=== PATIENT | female | born 1990 | race African-American/Black ===

== ENCOUNTER 2022-01-07 18:06 | Emergency (ER) | payer OTHER ==
[2022-01-07] MEDS ORDERED: FAMOTIDINE 20 MG/50 ML IVPB 20 MG/50 ML MG IVPB ONE ×2 (18:23→18:51)
[2022-01-07] MEDS ORDERED: SODIUM CHLORIDE 0.9% 1000 ML INFUS.BAG IV ONE (18:23)
[2022-01-07] MEDS ORDERED: ONDANSETRON 4 MG/2 ML VIAL IVPUSH ONE (18:23)
[2022-01-07 18:25] VITALS: BP 135/79; PULSE 84; TEMP 98.6; BMI 26.3
[2022-01-07] MEDS ORDERED: ONDANSETRON 4 MG/2 ML VIAL ONE (18:51)
[2022-01-07 19:13] LABS: ALBUMIN 4.2 g/dl (3.4-5.0); BILIRUBIN,TOTAL 0.7 mg/dl (0.2-1); CALCIUM 9.3 mg/dl (8.5-10); CREATININE 0.8 mg/dl (0.55-1.3); TOT PROT 8.1 g/dl (6.4-8.2)
[2022-01-07 20:10] LABS: BASO % 0.3 % (0-2.0); EOS % 1.2 % (0-4.5); HEMATOCRIT 39.4 % (32.4-45.2); HEMOGLOBIN 13.5 GM/dL (10.7-15.3); LYMPH % 7.6 % (8-40); MCH 28.9 pg (25.7-33.7); MCHC 34.4 g/dl (32.0-36.0); MEAN CELL VOLUME 83.9 fl (80-96); MEAN PLT VOLUME 9.1 fl (7.5-11.1); MONO % 4.1 % (3.8-10.2); NEUT % 86.8 % (42.8-82.8); PLATELET COUNT 334 10^3/uL (134-434); RBC 4.69 M/mm3 (3.60-5.2); RDW 13.1 % (11.6-15.6); WHITE BLOOD COUNT 11.2 K/mm3 (4.0-10.0)
== END 2022-01-07 21:38 | disposition home or self-care (01) ==
LOC: FER 18:06
PROC: 3E033NZ Introduction of Analgesics, Hypnotics, Sedatives into Peripheral Vein, Percutaneous Approach (ICD-10-PCS; principal; 2022-01-07)
PROC: 3E033GC Introduction of Other Therapeutic Substance into Peripheral Vein, Percutaneous Approach (ICD-10-PCS; 2022-01-07)
DX: R11.2 Nausea with vomiting, unspecified (principal)
CPT/HCPCS: 36415; 80053; 83690; 84484; 85025; 93005; 96365; 96375; 99284-25; C9803; U0003; U0005

== ENCOUNTER 2022-08-20 06:41 | Emergency (ER) | payer OTHER ==
[2022-08-20 06:49] VITALS: BP 128/86; PULSE 83; RESP 18; TEMP 97.4; BMI 25.8
[2022-08-20] MEDS ORDERED: FAMOTIDINE 20 MG/50 ML IVPB 20 MG/50 ML MG IVPB ONE ×2 (07:45→08:02)
[2022-08-20] MEDS ORDERED: SODIUM CHLORIDE 1,000 ML IV STA (07:45)
[2022-08-20] MEDS ORDERED: ONDANSETRON 4 MG/2 ML VIAL IVPUSH ONE (07:45)
[2022-08-20] MEDS ORDERED: ACETAMINOPHEN 1000 MG/100 ML BAG IVPB ONE (07:45)
[2022-08-20] MEDS ORDERED: ONDANSETRON 4 MG/2 ML VIAL ONE (08:02)
[2022-08-20] MEDS ORDERED: ACETAMINOPHEN INJECTION 100 ML IVPB ONE (08:02)
[2022-08-20 08:59] LABS: HEMATOCRIT 42.1 % (32.4-45.2); MCH 29.5 pg (25.7-33.7); MCHC 35.6 g/dl (32.0-36.0); MEAN CELL VOLUME 82.8 fl (80-96); MEAN PLT VOLUME 8.4 fl (7.5-11.1); PLATELET COUNT 345 10^3/uL (134-434); RBC 5.08 M/mm3 (3.60-5.2); RDW 13.5 % (11.6-15.6); WHITE BLOOD COUNT 6.2 K/mm3 (4.0-10.0)
[2022-08-20 09:30] LABS: CALCIUM 9.6 mg/dL (8.5-10.1)
[2022-08-20 09:31] LABS: ALBUMIN 4.2 g/dl (3.4-5.0); BLOOD UREA NITROGEN 11.9 mg/dL (7-18)
[2022-08-20 09:35] LABS: BILIRUBIN,TOTAL 0.2 mg/dL (0.2-1); CREATININE 1.2 mg/dL (0.55-1.3); TOT PROT 8.4 g/dl (6.4-8.2)
[2022-08-20 09:55] LABS: ANISOCYTOSIS 0; HELMET CELLS 0; HOWELL-JOLLY BODIES 0; MACROCYTOSIS 0; OVALOCYTE 0; ROULEAU 0; SICKELED CELLS 0; TARGET CELLS 0; TEAR DROP CELLS 0; TOXIC GRANULATION 0
== END 2022-08-20 12:02 | disposition home or self-care (01) ==
LOC: JERFT 06:41 → JER 06:41 → JERFT 12:02
PROC: 3E033GC Introduction of Other Therapeutic Substance into Peripheral Vein, Percutaneous Approach (ICD-10-PCS; principal; 2022-08-20)
DX: R19.7 Diarrhea, unspecified (principal)
CPT/HCPCS: 0241U-QW; 36415; 80053; 82272; 84703; 85025; 87045; 87046; 87186; 87209; 87324; 87449; 99284-25

== ENCOUNTER 2023-03-22 11:47 | Emergency (ER) | payer BC, OTHER ==
[2023-03-22 11:52] VITALS: BP 118/75; PULSE 68; RESP 18; TEMP 97.5; BMI 27.3
[2023-03-22] MEDS ORDERED: DEXAMETHASONE SOD PHOSPHATE 10 MG/1 ML VIAL PO ONE (13:25)
[2023-03-22] MEDS ORDERED: ACETAMINOPHEN 500 MG TABLET (FP) PO ONE (13:25)
[2023-03-22 13:26] LABS: BASO % 0.5 % (0-2.0); EOS % 1.4 % (0-4.5); HEMATOCRIT 37.8 % (32.4-45.2); HEMOGLOBIN 13.3 GM/dL (10.7-15.3); LYMPH % 22.2 % (8-40); MCH 28.7 pg (25.7-33.7); MCHC 35.1 g/dl (32.0-36.0); MEAN CELL VOLUME 81.7 fl (80-96); MEAN PLT VOLUME 8.1 fl (7.5-11.1); NEUT % 69.9 % (42.8-82.8); PLATELET COUNT 396 10^3/uL (134-434); RBC 4.63 M/mm3 (3.60-5.2); RDW 14.4 % (11.6-15.6); WHITE BLOOD COUNT 9.4 K/mm3 (4.0-10.0)
[2023-03-22 13:45] LABS: CALCIUM 8.8 mg/dL (8.5-10.1)
[2023-03-22] MEDS ORDERED: DEXAMETHASONE SOD PHOSPHATE 10 MG/1 ML VIAL ONE (13:46)
[2023-03-22] MEDS ORDERED: ACETAMINOPHEN 500 MG TABLET (FP) ONE (13:46)
[2023-03-22 13:49] LABS: CREATININE 0.8 mg/dL (0.55-1.3)
== END 2023-03-22 14:17 | disposition home or self-care (01) ==
LOC: JER 11:47
DX: R07.89 Other chest pain (principal)
CPT/HCPCS: 36415; 71046-TC-FY; 80048; 84484; 85025; 93005; 93010; 99285-25; J1100

== ENCOUNTER 2023-07-22 13:43 | Emergency (ER) | payer OTHER ==
[2023-07-22 13:58] VITALS: PULSE 74; BMI 29.0
[2023-07-22] MEDS ORDERED: SODIUM CHLORIDE 0.9% 500 ML INFUS.BAG IV ONE ×2 (14:21→16:21)
[2023-07-22] MEDS ORDERED: ONDANSETRON 4 MG/2 ML VIAL IVPUSH ONE (14:25)
[2023-07-22] MEDS ORDERED: ONDANSETRON 4 MG/2 ML VIAL ONE (14:48)
[2023-07-22 15:23] LABS: VENOUS BASE EXCESS -0.2 mmol/L (-2-2); VENOUS O2 SATURATION 96.8 % (70-80); VENOUS PCO2 37.8 mmHg (38-52); VENOUS PH 7.42 (7.310-7.410)
[2023-07-22 15:30] LABS: BASO % 0.6 % (0-2.0); EOS % 0.8 % (0-4.5); HEMOGLOBIN 13.3 GM/dL (10.7-15.3); MCH 28.7 pg (25.7-33.7); MCHC 34.9 g/dl (32.0-36.0); MEAN CELL VOLUME 82.1 fl (80-96); MEAN PLT VOLUME 9.7 fl (7.5-11.1); MONO % 4.6 % (3.8-10.2); PLATELET COUNT 341 10^3/uL (134-434); RBC 4.63 M/mm3 (3.60-5.2); RDW 13.3 % (11.6-15.6); WHITE BLOOD COUNT 10.3 K/mm3 (4.0-10.0)
[2023-07-22 15:54] LABS: POTASSIUM 4.1 mmol/L (3.5-5.1)
[2023-07-22 15:57] LABS: ALBUMIN 3.7 g/dl (3.4-5.0); BLOOD UREA NITROGEN 13.3 mg/dL (7-18); MAGNESIUM 1.8 mg/dL (1.8-2.4)
[2023-07-22 16:00] LABS: CREATININE 0.9 mg/dL (0.55-1.3)
[2023-07-22 16:01] LABS: BILIRUBIN,TOTAL 0.2 mg/dL (0.2-1)
[2023-07-22 18:21] VITALS: BP 124/78; RESP 18; TEMP 98.3
== END 2023-07-22 18:36 | disposition home or self-care (01) ==
LOC: JER 13:43
PROC: 3E033GC Introduction of Other Therapeutic Substance into Peripheral Vein, Percutaneous Approach (ICD-10-PCS; principal; 2023-07-22)
DX: E11.65 Type 2 diabetes mellitus with hyperglycemia (principal); R42 Dizziness and giddiness; R63.1 Polydipsia; R35.89 Other polyuria; R11.0 Nausea
CPT/HCPCS: 36415; 80053; 82010; 82803; 82962; 83735; 85025; 93005; 93010; 99284-25

== ENCOUNTER 2024-01-14 06:29 | Emergency (ER) | payer OTHER ==
[2024-01-14 06:37] VITALS: BP 131/80; PULSE 99; RESP 18; TEMP 99.1; BMI 30.4
[2024-01-14] MEDS ORDERED: ACETAMINOPHEN 500 MG TABLET (FP) ONE (08:00)
[2024-01-14] MEDS ORDERED: ONDANSETRON *ODT* 4 MG TABLET ONE (08:00)
[2024-01-14] MEDS: ACETAMINOPHEN 500 MG TABLET (FP) PO ONE (08:03)
[2024-01-14] MEDS: ONDANSETRON *ODT* 4 MG TABLET SL ONE (08:04)
[2024-01-14] MEDS ORDERED: KETOROLAC TROMETHAMINE 30 MG/1 ML VIAL ONE (08:36)
[2024-01-14] MEDS: KETOROLAC TROMETHAMINE 30 MG/1 ML VIAL IM ONE (08:42)
== END 2024-01-14 09:22 | disposition home or self-care (01) ==
LOC: JER 06:29
PROC: 3E0233Z Introduction of Anti-inflammatory into Muscle, Percutaneous Approach (ICD-10-PCS; principal; 2024-01-14)
DX: M79.10 Myalgia, unspecified site (principal); R50.9 Fever, unspecified; J10.1 Influenza due to other identified influenza virus with other respiratory manifestations; Z20.822 Contact with and (suspected) exposure to COVID-19
CPT/HCPCS: 0241U-QW; 99284-25; Q0162

== ENCOUNTER 2024-02-09 21:38 | Emergency (ER) | payer OTHER ==
[2024-02-09 21:54] VITALS: BP 132/86; PULSE 95; RESP 16; TEMP 98.5; BMI 27.3
[2024-02-09 22:14] LABS: HCG,QUALITATIVE URINE Negative
[2024-02-09] MEDS: SODIUM CHLORIDE 1,000 ML IV ONE (22:33)
[2024-02-09] MEDS ORDERED: ONDANSETRON 4 MG/2 ML VIAL ONE (22:35)
[2024-02-09] MEDS ORDERED: KETOROLAC TROMETHAMINE 30 MG/1 ML VIAL ONE (22:35)
[2024-02-09] MEDS ORDERED: cefTRIAXone SODIUM 1 GM VIAL ONE (22:35)
[2024-02-09 22:37] LABS: HEMATOCRIT 38.5 % (32.4-45.2); HEMOGLOBIN 13.2 G/dL (10.7-15.3); MCHC 34.2 g/dl (32.0-36.0); MEAN CELL VOLUME 84.8 fl (80-96); MEAN PLT VOLUME 8.3 fl (7.5-11.1); PLATELET COUNT 270.3 10^3/uL (134-434); RBC 4.54 10^6/uL (3.60-5.2); RDW 14.4 % (11.6-15.6); WHITE BLOOD COUNT 10.5 10^3/uL (4.0-10.8)
[2024-02-09] MEDS: KETOROLAC TROMETHAMINE 30 MG/1 ML VIAL IVPUSH ONE (22:42)
[2024-02-09] MEDS: ONDANSETRON 4 MG/2 ML VIAL IVPUSH ONE (22:43)
[2024-02-09 23:01] LABS: ALBUMIN 4.1 g/dl (3.4-5.0); BILIRUBIN,TOTAL 0.5 mg/dl (0.2-1); CALCIUM 8.6 mg/dl (8.5-10.1); CREATININE 0.7 mg/dl (0.6-1.3); POTASSIUM 3.5 mmol/L (3.5-5.1); TOT PROT 6.9 g/dl (6.4-8.2)
== END 2024-02-09 23:20 | disposition home or self-care (01) ==
LOC: FER 21:38
PROC: 3E03329 Introduction of Other Anti-infective into Peripheral Vein, Percutaneous Approach (ICD-10-PCS; principal; 2024-02-09)
PROC: 3E0333Z Introduction of Anti-inflammatory into Peripheral Vein, Percutaneous Approach (ICD-10-PCS; 2024-02-09)
PROC: 3E033GC Introduction of Other Therapeutic Substance into Peripheral Vein, Percutaneous Approach (ICD-10-PCS; 2024-02-09)
PROC: 3E0337Z Introduction of Electrolytic and Water Balance Substance into Peripheral Vein, Percutaneous Approach (ICD-10-PCS; 2024-02-09)
DX: N39.0 Urinary tract infection, site not specified (principal); M54.50 Low back pain, unspecified; R11.0 Nausea; R10.30 Lower abdominal pain, unspecified; R19.7 Diarrhea, unspecified; R35.0 Frequency of micturition
CPT/HCPCS: 36415; 80053; 81003; 81015; 82962; 84703; 85027; 87086; 87186; 96361; 96374; 96375; 99284-25

== ENCOUNTER 2024-03-24 06:23 | Inpatient (IN) | payer OTHER ==
[~2024-03-24 06:23] MED LIST: MEROPENEM 1 GM in DEXTROSE 5%-WATER 100 ML IVPB SCH
[2024-03-24] MEDS ORDERED: ONDANSETRON *ODT* 4 MG TABLET ONE (07:36)
[2024-03-24] MEDS ORDERED: ACETAMINOPHEN INJECTION 100 ML IVPB ONE (07:36)
[2024-03-24] MEDS: ONDANSETRON *ODT* 4 MG TABLET SL ONE (07:45)
[2024-03-24] MEDS: ACETAMINOPHEN 1000 MG/100 ML BAG IVPB ONE (08:19)
[2024-03-24] MEDS: LACTATED RINGERS SOLUTION 1000 ML INFUS.BAG IV ONE (08:19)
[2024-03-24 08:31] LABS: HEMATOCRIT 37.7 % (32.4-45.2); HEMOGLOBIN 12.9 GM/dL (10.7-15.3); MCH 28.2 pg (25.7-33.7); MCHC 34.2 g/dl (32.0-36.0); MEAN CELL VOLUME 82.4 fl (80-96); MEAN PLT VOLUME 8.5 fl (7.5-11.1); PLATELET COUNT 343 10^3/uL (134-434); RBC 4.57 M/mm3 (3.60-5.2); WHITE BLOOD COUNT 22.4 K/mm3 (4.0-10.0)
[2024-03-24 08:55] LABS: CALCIUM 8.9 mg/dL (8.5-10.1)
[2024-03-24 08:56] LABS: ALBUMIN 3.6 g/dl (3.4-5.0); BLOOD UREA NITROGEN 11.7 mg/dL (7-18)
[2024-03-24 08:58] LABS: CREATININE 0.9 mg/dL (0.55-1.3)
[2024-03-24 09:00] LABS: BILIRUBIN,TOTAL 0.6 mg/dL (0.2-1); TOT PROT 7.7 g/dl (6.4-8.2)
[2024-03-24] MEDS ORDERED: morphine SULFATE 4 MG/ML VIAL ONE ×3 (09:16→14:21)
[2024-03-24] MEDS: morphine CARPU-JECT 4 MG/1 ML DISP.SYRIN IVPUSH ONE ×4 (09:35→14:20)
[2024-03-24 10:38] LABS: EPI CELLS 15 /uL (0-25.1); HYALINE CASTS 1 /uL (0-3.1); PH,URINE 5.5 (5.0-8.0); URINE APPEARANCE CLOUDY; URINE BACTERIA >9,000 /uL (0-1359); URINE BILIRUBIN NEGATIVE (NEGATIVE); URINE COLOR YELLOW; URINE GLUCOSE (UA) 1+ (NEGATIVE); URINE KETONE NEGATIVE (NEGATIVE); URINE LEUK ESTERASE 1+ (NEGATIVE); URINE NITRITE POSITIVE (NEGATIVE); URINE PROTEIN TRACE (NEGATIVE); URINE RBC 33 /uL (0-23.9); URINE UROBILINOGEN 0.2 mg/dL (0.2-1.0); URINE WBC 358 /uL (0-25.8)
[2024-03-24] MEDS ORDERED: MEROPENEM 1 GM VIAL (RESTRICTED TO ID) IVPB ONE (12:20)
[2024-03-24] MEDS: MEROPENEM 1 GM in DEXTROSE 5%-WATER 100 ML IVPB ONE (12:31)
[2024-03-24] MEDS ORDERED: FENTANYL CITRATE/PF 50 MCG/ML VIAL ONE (13:08)
[2024-03-24] MEDS ORDERED: ONDANSETRON 4 MG/2 ML VIAL IVPUSH PRN (15:04)
[2024-03-24] MEDS: DEXTROSE 5%-0.45% SALINE 1,000 ML IV SCH (15:50)
[2024-03-24] MEDS: ACETAMINOPHEN 1000 MG/100 ML BAG IVPB PRN (15:56)
[2024-03-24 16:28] VITALS: BMI 30.1
[2024-03-24] MEDS: INSULIN ASPART SLIDING SCALE (NOVOLOG) 1 VIAL SQ SCH (18:02)
[2024-03-24] MEDS: MEROPENEM 1 GM in DEXTROSE 5%-WATER 100 ML IVPB SCH (18:05)
[2024-03-24] MEDS: morphine SULFATE 4 MG/ML VIAL IVPUSH ONE (23:17)
[2024-03-25] MEDS ORDERED: MEROPENEM 1 GM in DEXTROSE 5%-WATER 100 ML IVPB SCH (00:30)
[2024-03-25] MEDS ORDERED: FENTANYL CITRATE/PF 50 MCG/ML VIAL ONE ×3 (06:47→08:51)
[2024-03-25] MEDS ORDERED: MIDAZOLAM HCL 2 MG/2 ML SINGLE DOSE VIAL ONE (06:47)
[2024-03-25] MEDS ORDERED: PROPOFOL 20 ML ONE ×2 (06:47→07:41)
[2024-03-25] MEDS ORDERED: MEPERIDINE HCL 25 MG/ML VIAL ONE (07:57)
[2024-03-25] MEDS: MEPERIDINE HCL 25 MG/ML VIAL IVPUSH ONE (07:57)
[2024-03-25] MEDS ORDERED: LACTATED RINGERS SOLUTION 1,000 ML IV SCH (08:00)
[2024-03-25] MEDS: ACETAMINOPHEN 1000 MG/100 ML BAG IVPB PRN ×2 (09:23→21:21)
[2024-03-25] MEDS: ACETAMINOPHEN INJECTION 100 ML IVPB ONE (09:23)
[2024-03-25] MEDS: DEXTROSE 5%-0.45% SALINE 1,000 ML IV SCH (09:39)
[2024-03-25] MEDS: MEROPENEM 1 GM in DEXTROSE 5%-WATER 100 ML IVPB SCH (11:09)
[2024-03-25 11:27] LABS: HEMATOCRIT 35.2 % (32.4-45.2); HEMOGLOBIN 11.8 GM/dL (10.7-15.3); MCHC 33.6 g/dl (32.0-36.0); MEAN CELL VOLUME 83.3 fl (80-96); PLATELET COUNT 283 10^3/uL (134-434); RBC 4.23 M/mm3 (3.60-5.2); WHITE BLOOD COUNT 20.6 K/mm3 (4.0-10.0)
[2024-03-25 11:44] LABS: POTASSIUM 3.4 mmol/L (3.5-5.1)
[2024-03-25 11:51] LABS: BLOOD UREA NITROGEN 7.4 mg/dL (7-18); CALCIUM 8.1 mg/dL (8.5-10.1)
[2024-03-25 11:56] LABS: BILIRUBIN,TOTAL 0.5 mg/dL (0.2-1); TOT PROT 6.3 g/dl (6.4-8.2)
[2024-03-25 12:03] LABS: ALBUMIN 2.8 g/dl (3.4-5.0)
[2024-03-25] MEDS: INSULIN ASPART SLIDING SCALE (NOVOLOG) 1 VIAL SQ SCH (12:17)
[2024-03-25 12:44] LABS: ANISOCYTOSIS 0; HELMET CELLS 0; HOWELL-JOLLY BODIES 0; MACROCYTOSIS 0; OVALOCYTE 0; ROULEAU 0; SICKELED CELLS 0; TARGET CELLS 0; TEAR DROP CELLS 0; TOXIC GRANULATION 0
[2024-03-25 13:11] VITALS: RESP 18
[2024-03-25] MEDS: morphine SULFATE 4 MG/ML VIAL IVPUSH PRN (17:27)
[2024-03-25] MEDS: morphine SULFATE 4 MG/ML VIAL IVPUSH ONE (22:55)
[2024-03-26 08:36] LABS: HEMATOCRIT 31.7 % (32.4-45.2); HEMOGLOBIN 11.2 GM/dL (10.7-15.3); MCH 29.2 pg (25.7-33.7); MCHC 35.2 g/dl (32.0-36.0); MEAN CELL VOLUME 82.8 fl (80-96); PLATELET COUNT 250 10^3/uL (134-434); RBC 3.83 M/mm3 (3.60-5.2); WHITE BLOOD COUNT 20.8 K/mm3 (4.0-10.0)
[2024-03-26 08:45] LABS: POTASSIUM 3.2 mmol/L (3.5-5.1)
[2024-03-26 09:10] LABS: ALBUMIN 2.5 g/dl (3.4-5.0); BLOOD UREA NITROGEN 4.1 mg/dL (7-18); CALCIUM 8.5 mg/dL (8.5-10.1)
[2024-03-26 09:13] LABS: CREATININE 0.7 mg/dL (0.55-1.3)
[2024-03-26 09:15] LABS: BILIRUBIN,TOTAL 0.6 mg/dL (0.2-1); TOT PROT 6.1 g/dl (6.4-8.2)
[2024-03-26 09:29] LABS: ANISOCYTOSIS 0; HELMET CELLS 0; HOWELL-JOLLY BODIES 0; MACROCYTOSIS 0; OVALOCYTE 0; ROULEAU 0; SICKELED CELLS 0; TARGET CELLS 0; TEAR DROP CELLS 0; TOXIC GRANULATION 0
[2024-03-26] MEDS: ONDANSETRON 4 MG/2 ML VIAL IVPUSH PRN (09:35)
[2024-03-26] MEDS: ACETAMINOPHEN 1000 MG/100 ML BAG IVPB PRN (21:51)
[2024-03-27] MEDS: ACETAMINOPHEN 1000 MG/100 ML BAG IVPB PRN (06:54)
[2024-03-27 17:23] LABS: BASO % 0.5 % (0-2.0); EOS % 1.8 % (0-4.5); HEMATOCRIT 34.6 % (32.4-45.2); HEMOGLOBIN 11.9 GM/dL (10.7-15.3); LYMPH % 14.6 % (8-40); MCH 28.4 pg (25.7-33.7); MCHC 34.3 g/dl (32.0-36.0); MEAN PLT VOLUME 8.7 fl (7.5-11.1); MONO % 6.4 % (3.8-10.2); NEUT % 76.7 % (42.8-82.8); PLATELET COUNT 316 10^3/uL (134-434); RBC 4.18 M/mm3 (3.60-5.2); RDW 13.9 % (11.6-15.6); WHITE BLOOD COUNT 14.6 K/mm3 (4.0-10.0)
[2024-03-27 17:41] LABS: POTASSIUM 3.3 mmol/L (3.5-5.1)
[2024-03-27 17:44] LABS: ALBUMIN 2.7 g/dl (3.4-5.0); BLOOD UREA NITROGEN 7.6 mg/dL (7-18); CALCIUM 8.8 mg/dL (8.5-10.1)
[2024-03-27 17:47] LABS: CREATININE 0.9 mg/dL (0.55-1.3)
[2024-03-27 17:49] LABS: BILIRUBIN,TOTAL 0.4 mg/dL (0.2-1); TOT PROT 6.8 g/dl (6.4-8.2)
[2024-03-27] MEDS: POTASSIUM CHLORIDE ORAL LIQUID 20 MEQ/15 ML PO SCH (18:19)
[2024-03-27] MEDS: POLYETHYLENE GLYCOL (HEALTHYLAX) 3350 17 GM PACKET PO SCH (21:33)
[2024-03-27] MEDS: DOCUSATE SODIUM 100 MG CAPSULE (FP) PO SCH (21:34)
[2024-03-28] MEDS: ACETAMINOPHEN 325 MG TABLET (FP) PO ONE (11:11)
[2024-03-28 13:10] VITALS: BP 120/70; PULSE 72; TEMP 98.4
[2024-03-28] MEDS: ACETAMINOPHEN 325 MG TABLET (FP) PO PRN (17:12)
== END 2024-03-28 18:53 | disposition home or self-care (01) | DRG 446 ==
LOC: JER 06:23 → JERBED 12:03 → J6S 14:44
PROVIDERS: ADMIT Internal Medicine; ATTEND Internal Medicine
PROC: 0TC78ZZ Extirpation of Matter from Left Ureter, Via Natural or Artificial Opening Endoscopic (ICD-10-PCS; principal; 2024-03-25 07:00)
PROC: 0T778DZ Dilation of Left Ureter with Intraluminal Device, Via Natural or Artificial Opening Endoscopic (ICD-10-PCS; 2024-03-25 07:00)
PROC: BT1FZZZ Fluoroscopy of Left Kidney, Ureter and Bladder (ICD-10-PCS; 2024-03-25 07:00)
DX: N13.6 Pyonephrosis (principal); E11.9 Type 2 diabetes mellitus without complications; Z79.84 Long term (current) use of oral hypoglycemic drugs
CPT/HCPCS: 36415; 74019-TC-FY; 74177-TC; 76000-TC-FY; 80053; 81003; 82360; 82962; 83036; 83605; 83690; 83735; 84703; 85025; 87086; 87186; 88300-TC; 93005; 93010; 94760; 99285-25; C1758; C2617; J0131; Q0162; Q9967

== ENCOUNTER 2024-04-11 04:38 | Day surgery (SDC) | payer OTHER ==
[2024-04-07 10:05] VITALS: BMI 28.1
[2024-04-11 13:54] VITALS: RESP 18
[2024-04-11] MEDS ORDERED: MIDAZOLAM HCL 2 MG/2 ML SINGLE DOSE VIAL ONE (16:21)
[2024-04-11] MEDS ORDERED: FENTANYL CITRATE/PF 50 MCG/ML VIAL ONE ×2 (16:23→16:57)
[2024-04-11] MEDS ORDERED: PROPOFOL 20 ML ONE (17:00)
[2024-04-11] MEDS ORDERED: ACETAMINOPHEN INJECTION 100 ML IVPB ONE (19:10)
[2024-04-11] MEDS: ACETAMINOPHEN 1000 MG/100 ML BAG IVPB ONE (19:14)
[2024-04-11 20:02] VITALS: BP 123/76; PULSE 74; TEMP 98.4
== END 2024-04-11 19:51 | disposition home or self-care (01) ==
LOC: JASU-SURG 04:38
PROVIDERS: ATTEND Urology
PROC: 0TF4XZZ Fragmentation in Left Kidney Pelvis, External Approach (ICD-10-PCS; principal; 2024-04-11 15:30)
DX: N20.0 Calculus of kidney (principal)
CPT/HCPCS: 81025; 82962; J0131

== ENCOUNTER 2024-10-12 18:27 | Emergency (ER) | payer OTHER ==
[2024-10-12 18:35] VITALS: BP 138/87; PULSE 74; RESP 18; TEMP 97.7; BMI 27.8
== END 2024-10-12 20:11 | disposition left against medical advice (07) ==
LOC: JER 18:27
DX: Z53.21 Procedure and treatment not carried out due to patient leaving prior to being seen by health care provider (principal)
CPT/HCPCS: 99281-25